=== PATIENT | male | born 1960 | race Caucasian/White ===

== ENCOUNTER 2023-04-22 06:25 | Outpatient (CLI) | payer OTHER | END 2023-04-22 23:59 | disposition critical access hospital (66) | LOC: EMS 06:25 | DX: R04.0 Epistaxis (principal); H04.89 Other disorders of lacrimal system | CPT/HCPCS: A0425; A0429 ==

== ENCOUNTER 2023-04-22 07:01 | Emergency (ER) | payer OTHER ==
[2023-04-22] MEDS ORDERED: TRANEXAMIC ACID 1,000 MG/10 ML VIAL NAS STA ×2 (07:12→07:26)
[2023-04-22 07:13] VITALS: O2SAT 98
--- NOTE | 2023-04-22 07:37 | ED Physician Documentation ---
PD HPI HEENT - Stated complaint Stated Complaint: EPISTAXIS - Chief complaint Chief Complaint: Heent - History obtained from History obtained from: Patient, Family - History of Present Illness Timing - onset: Enter time (0600), Today Timing - duration: Minutes Timing - details: Abrupt onset, Still present Location: Nose Improves: Other (pressure to sides of nose) Associated symptoms: No: Fever, Congestion, Rhinorrhea, Trismus, Unable to swallow, Swollen nodes, Facial swelling, Headache, Cough Similar symptoms before: Diagnosis (epistaxis) Recently seen: Not recently seen - Additional information Additional information: Otis Heller is a 62-year-old male who awoke this morning with epistaxis from his left nares. He has been unable to control bleeding and has a continuous drip of blood going down his throat, into his sinuses, out of his eyes and into his left ear. He is brought in today by ambulance with hypertension as well. He has recently been diagnosed with prostate cancer he is not undergoing treatment currently. He did consume alcohol last night and denies any chance of alcohol withdrawal as a cause for elevated blood pressure. Review of Systems Constitutional: denies: Fever Eyes: denies: Decreased vision Ears: denies: Ear pain Nose: reports: Epistaxis Throat: denies: Sore throat Cardiac: denies: Chest pain / pressure Respiratory: denies: Dyspnea, Cough GI: denies: Abdominal Pain, Nausea, Vomiting, Constipation, Diarrhea : denies: Dysuria, Frequency PD PAST MEDICAL HISTORY - Past Medical History Past Medical History: Yes Cardiovascular: Hypertension, High cholesterol Respiratory: None Neuro: None Endocrine/Autoimmune: None GI: GERD : None HEENT: None Psych: None Musculoskeletal: None Derm: None Other Past Medical History: Prostate Ca - Past Surgical History Past Surgical History: No - Present Medications Home Medications: Ambulatory Orders Medication Instructions Recorded Confirmed Atorvastatin [Lipitor] 20 mg PO DAILY 04/22/23 04/22/23 Lisinopril/Hydrochlorothiazide 1 tab PO DAILY 04/22/23 04/22/23 [Zestoretic 20-25 mg Tablet] Omeprazole 20 mg PO DAILY 04/22/23 04/22/23 - Allergies Allergies/Adverse Reactions: Allergies Allergy/AdvReac Type Severity Reaction Status Date / Time No Known Drug Allergies Allergy Verified 04/22/23 07:12 - Social History Does the pt smoke?: No Smoking Status: Never smoker Does the pt drink ETOH?: No Does the pt have substance abuse?: No - Immunizations Immunizations are current?: Yes - POLST Patient has POLST: No PD ED PE NORMAL - Vitals Vital signs reviewed: Yes - General General: Alert and oriented X 3, Well developed/nourished, Other (clutching the nares with his hand tightly, blood from the eyes, nose and mouth. ) - HEENT HEENT: Atraumatic, PERRL, EOMI - Respiratory Respiratory: No respiratory distress - Derm Derm: Normal color, Warm and dry, No rash - Extremities Extremities: No deformity, No edema - Neuro Neuro: Alert and oriented X 3, surveillance agent 2-12 intact, No motor deficit, No sensory deficit, Normal speech Eye Opening: Spontaneous Motor: Obeys Commands Verbal: Oriented GCS Score: 15 - Psych Psych: Normal mood, Normal affect Results - Vitals Vitals: Vital Signs - 24 hr 04/22/23 07:08 Temperature 35.9 C L Heart Rate 95 Respiratory 18 Rate Blood Pressure 172/117 H O2 Saturation 98 Oxygen O2 Source Room air Procedures - Epistaxis - Minor Site: Left, Anterior Preparation: Clamp / pressure applied, Other (TXA and packing applied) Treatment: Anterior rhinorocket, Other (attempted TXA and packing but required r hinorocket for control. Did not attempt cautery with AgNO3.) Other: Observed - no bleeding, Pt tolerated well PD Medical Decision Making - ED course Complexity details: considered differential, d/w patient, d/w family ED course: 62-year-old Otis Heller has developed anterior septal bleeding and we were unable to control this with TXA and packing. This eventually required the use of a Rhino Rocket. We will control the bleeding with Rhino Rocket. The patient has been given instructions he is traveling tomorrow and expects to have this removed at an urgent care. Departure - Departure Disposition: 01 Home, Self Care Clinical Impression: Epistaxis Condition: Stable Instructions: ED Nosebleed, ED Nasal Packing Anterior Removable Comments: Otis today it looks like you have anterior septal bleeding from the left nostril and we have placed a Rhino Rocket. This device has a hemostatic agent on the outside of it and a balloon inside that places pressure against the bleeding. There is a small clear plastic reservoir near the end of the Rhino Rocket that you can feel the pressure inside the balloon. If there is more bleeding add more air as discussed. This Rhino Rocket should be removed tomorrow. This can be done here or at any center able to provide rudimentary medical care. Forms: PCP List
[2023-04-22] MEDS ORDERED: SILVER NITRATE APPLICATOR TOP STA (08:54)
[2023-04-22 09:53] VITALS: BP 142/100
== END 2023-04-22 09:45 | disposition home or self-care (01) ==
LOC: ED 07:01
DX: R04.0 Epistaxis (principal)
CPT/HCPCS: 30901; 99283